=== PATIENT | male | born 1960 | race Caucasian/White ===

== ENCOUNTER → 2017-11-22 14:24 | Outpatient (POV) | payer OTHER, SELFPAY ==
[2017-11-22 15:09] VITALS: BMI 22.4
[2017-11-22 15:13] VITALS: BP 113/76; PULSE 76; RESP 18; O2SAT 99
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
== END ==
PROVIDERS: Family Provider Emergency Medicine; PCP Emergency Medicine; Visit Provider Anesthesiology
DX: M54.32 Sciatica, left side (principal)
CPT/HCPCS: 99212; 99202

== ENCOUNTER 2021-04-04 17:35 | Emergency (ER) | payer MEDICARE, OTHER, SELFPAY ==
[2021-04-04 17:36] VITALS: BP 129/91; PULSE 76; RESP 16; TEMP 37.1; O2SAT 98; BMI 22.4
--- NOTE | 2021-04-04 19:08 | HMH.EDGENADL ---
ED Disposition Clinical Impression: Abscess Disposition: Home, Self-Care Condition on Discharge: Good Instructions: Animal Bites Referrals: Pasquale Avalos MD [Primary Care Provider] - 3 days Time of Disposition: 19:11 - Critical Care Critical Care Time: No Attestation: On 04/04/21, the high probability of a clinically significant, sudden or life threatening deterioration of the following system(s) required my full and direct attention, intervention and personal management. The time I documented below is in addition to time spent performing reported procedures but includes the following listed in this critical care notation. Medical Decision Making - Medical Records Medical records reviewed: Yes: I reviewed the patient's medical records. - Ricardo Inquiry Pt receiving controlled substance: No Vital Signs: 04/04/21 17:36 Temperature 98.7 F Temperature Source Oral Pulse Rate [Left] 76 Respiratory Rate 16 Blood Pressure [Right Arm] 129/91 H Blood Pressure Mean [Right Arm] 103 Blood Pressure Source [Right Arm] Automatic Cuff 02 Sat by Pulse Oximetry 98 Oxygen Delivery Method Room Air Medical Decision Narrative: Patient's clinical exam consistent with cutaneous abscess. Lesion is incredibly firm on palpation. No fluctuance is appreciated. Patient has an allergy to sulfa will therefore treat with clindamycin. First dose in the emergency department. Counseled on warm compresses 3-4 times per day. Instructed to take antibiotics as directed. Follow-up with PCP office on Wednesday for further evaluation. Return to emergency department if condition worsens. General Adult HPI - General Chief complaint: Animal Bite Stated complaint: recaction to insect sting Time Seen by Provider: 04/04/21 18:30 Mode of Arrival: Ambulatory Limitations: No Limitations Description of Symptoms (Recalled from ER Triage Doc. by RN): patient was bit by a bug on left posterior forearm approx 3 days ago. bite area is now red, inflamed, tender, and abcessed. patient complains of pain at the site 03/15. - History of Present Illness HPI narrative: 61yo M presents emergency department secondary to wound to his left forearm. Patient reports he had a small lesion appeared about 3 days ago. He tried to mari it with a needle last night and now the area of redness is worse. Complains of pain. States it is hard to sleep secondary to it. Denies fever, nausea/vomit/diarrhea. - Related Data Home Medications Medication Instructions Recorded Confirmed amitriptyline 25 mg tablet 25 mg PO QHS 09/13/17 trazodone 50 mg tablet 50 mg PO QHS PRN 09/13/17 Allergies Allergy/AdvReac Type Severity Reaction Status Date / Time codeine Allergy Mild ITCHING, Verified 02/11/18 08:07 BREAKOUT cyclobenzaprine Allergy Mild Rash Verified 02/11/18 08:07 [From Flexeril] Sulfa (Sulfonamide Allergy Mild Verified 02/11/18 08:07 Antibiotics) [SULFA (SULFONAMIDE ANTIBIOTICS)] tramadol Allergy Mild Rash Verified 02/11/18 08:07 [facility] History - Hepatitis A Screen Drug use history?: No High risk sexual behaviors?: No History of sexually transmitted infection?: No Currently employed?: No Childcare worker?: No Do you have indoor plumbing?: Yes Do you have electricity?: Yes Attestation statement:: This patient has been screened for Hepatitis A risk factors. I have reviewed the patient's past medical history: Yes Medical History: Reports:: Anxiety Other Medical History: Reports: Other Other Surgeries: Yes: Hernia Repair Amputation: No Fractures: Yes Comment: foot,RT - Social History Smoking Status: Current every day smoker Tobacco Type: cigarettes # Packs/Day (cigarettes): 1 Alcohol Intake: never Substance Use Type: denies use Occupational Status: retired Household Members: spouse - Psychiatric History Pschychiatric History:: Reports:: Anxiety Family Hx:: Diabetes, Hypertension, Kidney Disease ROS Obtained: Mason
[2021-04-04 19:14] VITALS: BP 110/77; PULSE 75; RESP 18; TEMP 36.8; O2SAT 98
[2021-04-04 19:17] VITALS: BP 110/77; PULSE 75; RESP 18; TEMP 36.8; O2SAT 98
== END 2021-04-04 19:19 | disposition home or self-care (01) ==
PROVIDERS: Emergency Provider Family Medicine; PCP Emergency Medicine
DX: L02.414 Cutaneous abscess of left upper limb (principal); S50.862A Insect bite (nonvenomous) of left forearm, initial encounter; W57.XXXA Bitten or stung by nonvenomous insect and other nonvenomous arthropods, initial encounter; F41.9 Anxiety disorder, unspecified; F17.210 Nicotine dependence, cigarettes, uncomplicated
CPT/HCPCS: 99281

== ENCOUNTER → 2023-02-15 15:52 | Outpatient (CLI) | payer MEDICARE, OTHER, SELFPAY ==
--- NOTE | 2023-02-15 16:04 | MR_ITS ---
PROCEDURE INFORMATION: Exam: MR Lumbar Spine Without Contrast Exam date and time: 02/15/2023 4:31 PM Age: 63 years old Clinical indication: Low back pain; Additional info: Lumbar radiculopathy. Left leg pain, numbness and tingling. No recent injury or trauma TECHNIQUE: Imaging protocol: Magnetic resonance imaging of the lumbar spine without contrast. COMPARISON: LAB ASSISTANT/O MRI-L-SPINE W/O 08/11/2017 2:20 PM FINDINGS: Bones/joints: There are multilevel Schmorl's nodes present in the lower thoracic/upper lumbar spine which is unchanged. No significant loss of vertebral body height is seen. No acute osseous injury or suspicious marrow signal. Alignment is anatomic. Spinal cord: Visualized cord, conus medullaris and cauda equina are unremarkable without compression. L1-L2: No significant disc bulge or herniation. No severe spinal canal stenosis. No significant neural foraminal narrowing. L2-L3: L2-L3 diffuse disc desiccation with mild loss of height is unchanged. No stenosis. L3-L4: No significant disc bulge or herniation. No severe spinal canal stenosis. No significant neural foraminal narrowing. L4-L5: L4-L5 minimal bilateral facet arthrosis is seen without stenosis which is unchanged. L5-S1: L5-S1 posterior annular disc tearing with minimal diffuse disc bulging is unchanged. No spinal canal stenosis. Minimal bilateral facet arthrosis with trace facet effusions is unchanged. Patent neural foramina. Soft tissues: Unremarkable. IMPRESSION: Minimal degenerative disc disease is unchanged. No spinal canal stenosis. No acute findings.
== END ==
PROVIDERS: PCP Family Medicine; Visit Provider Family Medicine
DX: M54.50 Low back pain, unspecified (principal); M54.16 Radiculopathy, lumbar region
CPT/HCPCS: 72148; 76376

== ENCOUNTER 2025-08-04 11:08 | Emergency (ER) | payer MEDICARE, SELFPAY ==
--- OUTSIDE RECORDS SUMMARY | 2025-08-02 18:59 | XMS_ITS | Encounter Summary ---
Author Organization [employer] ([place], [place], [place], [place], [place]) Address [address] [place] [address] Care Team Providers Care Personnel Generalist Manager Name Role Phone [facility], [facility] Primary Care Provider Reason for Visit * Reason Comments Back Pain Pt reports that his lowe rback and neck go numb when laying flat preventing him from sleeping Encounter Details Date Type Department Care Team (Late st Contact Info) Description 08/02/2025 6:59 PM EST - 08/02/2025 10:40 PM EST Emergency [facility] Emergency Department [address] [place] [address] Chronic SI joint pain (Primary Dx); Paresthesias Discharge Disposition: Home or Self Care Social History Tobacco Use Types Packs/Day Years Used Date Smoking Tobacco: Every Day Cigarettes Smokeless Tobacco: Never Tobacco Cessation:Ready to Q uit: Not Asked; Counseling Given: Not Answered Alcohol Use Standard Drinks/Week Comments Not Currently 0 (1 standard drink = 0.6 oz pur e alcohol) Sex and Gender Information Value Date Recorded Sex Assigned at Not on file Legal Sex Male 5:22 PM CDT Gender Identity Not on file Sexual Orientation Not on file documented as of this encounter Last Filed Vital Signs Vital Sign Reading Time Taken Comments Blood Pressure 148/87 08/02/2025 8:10 PM EST Pulse 78 08/02/2025 8:10 PM EST Temperature 36.3 C (97.3 F) 08/02/2025 7:04 PM EST Respiratory Rate 17 08/02/2025 7:04 PM EST Oxygen Saturation 96% 08/02/2025 8:10 PM EST Inhaled Oxygen Concentration - - Weight 70.3 kg (155 lb) 08/02/2025 7:04 PM EST Height 170.2 cm (5' 7 ) 08/02/2025 7:04 PM EST Body Mass Index 24.28 08/02/2025 7:04 PM EST documented in this encounter Discharge Instructions * Attachments The following attachments cannot be sent through Care Everywhere. * Chronic Back Pain (Danish) documented in this encounter Medications at Time of Discharge acetaminophen (Tylenol Extra Strength) 500 MG tablet Take 2 tablets (1,000 mg total) by mouth every 6 (six) hours as needed for pain for up to 10 days. 30 tablet 08/02/2025 5 naproxen (NAPROSYN) 500 MG tablet Take 1 tablet (500 mg total) by mouth 2 (two) times daily with breakfast and dinner for 10 days. 20 tablet 08/02/2025 5 documented as of this encounter Plan of Treatment Not on file documented as of this encounter Procedures Procedure Name Priority Date/Time Associated Diagnosis Comments CT ABDOMEN/PELVIS WITH IV CONTRAST STAT 08/02/2025 9:[address] LUMBAR SPINE WITHOUT IV CONTRAST STAT 08/02/2025 9:[address] THORACIC SPINE WITHOUT IV CONTRAST STAT 08/02/2025 9:[address] CERVICAL SPINE WITHOUT IV CONTRAST STAT 08/02/2025 9:26 PM EST CBC W/ AUTO DIFF STAT 08/02/2025 8:12 PM EST URINALYSIS, REFLEX MICROSCOPIC AND CULTURE IF INDICATED STAT 08/02/2025 8:12 PM EST COMPREHENSIVE METABOLIC PANEL STAT 08/02/2025 8:12 PM EST documented in this encounter Results * CT ABDOMEN/PELVIS WITH IV CONTRAST Standard Protocol (08/02/2025 9:33 PM EST) Anatomical Region Laterality Modality Abdomen, Pelvis Computed Tomogra phy (CT) 08/02/2025 9:57 PM EST Impressions 08/02/2025 10:03 PM EST No acute intra-abdominal process. This study was performed using dose reduction techniques to achieve radiation exposure as low as reasonably achievable (ALARA). Images reviewed, interpreted, and dictated by Efrain Young MD Narrative 08/02/2025 10:[address] ABDOMEN AND PELVIS, WITH IV CONTRAST. HISTORY: Flank pain. Mid abdominal pain. Pain radiating to back. COMPARISON: None. PROCEDURE: IV contrast-enhanced exam. FINDINGS: ABDOMEN: The lung bases are clear. Kidneys show no obstructive changes. Tiny cyst is seen in the posterior liver dome. Remaining solid organs are normal. Gallbladder is unremarkable. Abdominal aorta shows no aneurysm or dissection. There is no free air or free fluid. No bowel obstruction is present. PELVIS: The appendix is normal. Bladder is distended. Prostate is unremarkable. There is no significant free fluid or adenopathy. Procedure Note fErain Young MD - 08/02/2025 CT ABDOMEN AND PELVIS, WITH IV CONTRAST. HISTORY: Flank pain. Mid abdominal pain. Pain radiating to back. COMPARISON: None. PROCEDURE: IV contrast-enhanced exam. FINDINGS: ABDOMEN: The lung bases are clear. Kidneys show no obstructive changes. Tiny cyst is seen in the posterior liver dome. Remaining solid organs are normal. Gallbladder is unremarkable. Abdominal aorta shows no aneurysm or dissection. There is no free air or free fluid. No bowel obstruction is present. PELVIS: The appendix is normal. Bladder is distended. Prostate is unremarkable. There is no significant free fluid or adenopathy. IMPRESSION: No acute intra-abdominal process. This study was performed using dose reduction techniques to achieve radiation exposure as low as reasonably achievable (ALARA). Images reviewed, interpreted, and dictated by Efrain Young MD us Rehana Arciniega MD IMG CT ORDERABLES Final R esult * CT cervical spine without contrast (08/02/2025 9:26 PM EST) Anatomical Region Laterality Modality C-spine, Neck Computed Tomogra phy (CT) 08/02/2025 9:54 PM EST Impressions 08/02/2025 9:58 PM EST 1. Moderate degenerative changes. 2. Negative CT evaluation of the cervical spine for acute bony injury. This study was performed using dose reduction techniques to achieve radiation exposure as low as reasonably achievable (ALARA). Images reviewed, interpreted, and dictated by Efrain Young MD Narrative 08/02/2025 9:[address] CERVICAL SPINE HISTORY: Pain with laying flat. TECHNIQUE: Thin section axial CT with sagittal and coronal reconstructions. FINDINGS: No fracture is present. Alignment is normal. 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 There is no bony canal stenosis. Moderate multilevel degenerative disc disease is noted most pronounced C4-5 and C5-6. Neural foraminal narrowing is noted bilaterally at C3-4, C4-5 and C5-6. Procedure Note Efrain Young MD - 08/02/2025 CT CERVICAL SPINE HISTORY: Pain with laying flat. TECHNIQUE: Thin section axial CT with sagittal and coronal reconstructions. FINDINGS: No fracture is present. Alignment is normal. 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 There is no bony canal stenosis. Moderate multilevel degenerative disc disease is noted most pronounced C4-5 and C5-6. Neural foraminal narrowing is noted bilaterally at C3-4, C4-5 and C5-6. IMPRESSION: 1. Moderate degenerative changes. 2. Negative CT evaluation of the cervical spine for acute bony injury. This study was performed using dose reduction techniques to achieve radiation exposure as low as reasonably achievable (ALARA). Images reviewed, interpreted, and dictated by Efrain Young MD us Rehana Arciniega MD IMG CT ORDERABLES Final R esult * CT spine thoracic without IV contrast (08/02/2025 9:26 PM EST) Anatomical Region Laterality Modality C-spine, T-spine, L-spine, Chest Computed Tomography (CT) 08/02/2025 9:55 PM EST Impressions 08/02/2025 9:[address] evaluation of the thoracic spine for acute bony injury. Should symptoms persist consider MR follow-up for better evaluation of disc disease and/or canal stenosis Narrative 08/02/2025 9:[address] THORACIC SPINE HISTORY: Mid back pain. Numbness. TECHNIQUE: Thin section axial CT with sagittal and coronal reconstructions. FINDINGS: No fracture is present. Alignment is normal. No bony canal stenosis is seen. No obvious disc abnormalities are seen. Procedure Note Efrain Young MD - 08/02/2025 CT THORACIC SPINE HISTORY: Mid back pain. Numbness. TECHNIQUE: Thin section axial CT with sagittal and coronal reconstructions. FINDINGS: No fracture is present. Alignment is normal. No bony canal stenosis is seen. No obvious disc abnormalities are seen. IMPRESSION: Negative CT evaluation of the thoracic spine for acute bony injury. Should symptoms persist consider MR follow-up for better evaluation of disc disease and/or canal stenosis us Rehana Arciniega MD IMG CT ORDERABLES Final R esult * CT spine lumbar without IV contrast (08/02/2025 9:26 PM EST) Anatomical Region Laterality Modality L-spine, Pelvis Computed Tomogra phy (CT) 08/02/2025 9:58 PM EST Impressions 08/02/2025 10:05 PM EST 1. Negative CT evaluation of the lumbar spine for acute bony injury. 2. Borderline degenerative canal stenosis L3-4 and L4-5. Should symptoms persist consider MR follow-up 3. Small nonobstructing lower pole right renal stones. This study was performed using dose reduction techniques to achieve radiation exposure as low as reasonably achievable (ALARA). Images reviewed, interpreted, and dictated by Efrain Young MD Narrative 08/02/2025 10:[address] LUMBAR SPINE HISTORY: Low back pain with laying flat. TECHNIQUE: Thin section axial CT with sagittal and coronal reconstructions. FINDINGS: No fracture is present. Alignment is normal. No bony canal stenosis is seen. Mild multilevel degenerative disc changes are seen. There is borderline canal stenosis at L3-4 and L4-5. Small nonobstructing stones are seen lower pole right kidney. These are better seen versus the CT abdomen and pelvis exam due to contrast partially obscuring stones. Procedure Note Efrain Young MD - 08/02/2025 CT LUMBAR SPINE HISTORY: Low back pain with laying flat. TECHNIQUE: Thin section axial CT with sagittal and coronal reconstructions. FINDINGS: No fracture is present. Alignment is normal. No bony canal stenosis is seen. Mild multilevel degenerative disc changes are seen. There is borderline canal stenosis at L3-4 and L4-5. Small nonobstructing stones are seen lower pole right kidney. These are better seen versus the CT abdomen and pelvis exam due to contrast partially obscuring stones. IMPRESSION: 1. Negative CT evaluation of the lumbar spine for acute bony injury. 2. Borderline degenerative canal stenosis L3-4 and L4-5. Should symptoms persist consider MR follow-up 3. Small nonobstructing lower pole right renal stones. This study was performed using dose reduction techniques to achieve radiation exposure as low as reasonably achievable (ALARA). Images reviewed, interpreted, and dictated by Efrain Young MD us Rehana Arciniega MD IMG CT ORDERABLES Final R esult * Urinalysis, Reflex Microscopic and Culture If Indicated (08/02/2025 8:12 PM EST) Color, UA Straw 08/02/2025 8:23 PM EST [facility] Clarity, UA Clear 08/02/2025 8:23 PM EST [facility] Specific [place], UA <=1.005 1.002 - 1.030 08/02/2025 8:23 PM EST [facility] pH, UA 6.0 5.0 - 9.0 08/02/2025 8:23 PM [facility] Leukocytes, UA Negative Negative 08/02/2025 8:23 PM [facility] Nitrite, UA Negative Negative 08/02/2025 8:23 PM EST [facility] Protein, UA Negative Negative 08/02/2025 8:23 PM EST [facility] Glucose, UA Negative Negative 08/02/2025 8:23 PM [facility] Ketones, UA Negative Negative 08/02/2025 8:23 PM [facility] Bilirubin, UA Negative Negative 08/02/2025 8:23 PM [facility] Blood, UA Negative Negative 08/02/2025 8:23 PM [facility] Urobilinogen, UA 0.2 mg/dL Normal 08/02/2025 8:23 PM [facility] Specimen Source Urine, Clean Catch 08/02/2025 8:23 PM EST [facility] Urine URINE SPECIMEN COLLECTION, CLEAN CATCH / Unknown 08/02/2025 8:12 PM EST 08/02/2025 8:16 PM EST us Rehana Arciniega MD URINE ORDERABLES Final Re sult [facility] [address] [place] [address] * (ABNORMAL) Comprehensive metabolic panel (08/02/2025 8:12 PM EST) Sodium 138 136 - 145 meq/L 08/02/2025 8:40 PM [facility] Potassium 3.5 3.5 - 5.1 meq/L 08/02/2025 8:40 PM [facility] Chloride 99 98 - 107 meq/L 08/02/2025 8:40 PM EST [facility] CO2 29 21 - 32 meq/L 08/02/2025 8:40 PM [facility] Calcium 9.0 8.5 - 10.1 mg/dL 08/02/2025 8:40 PM [facility] Glucose 73(L) 74 - 100 mg/dL 08/02/2025 8:40 PM EST [facility] BUN 7 7 - 18 mg/dL 08/02/2025 8:40 PM [facility] Creatinine 0.72 0.70 - 1.20 mg/dL 08/02/2025 8:40 PM [facility] BUN/Creatinine 10 08/02/2025 8:40 PM [facility] Albumin 3.1(L) 3.4 - 5.0 g/dL 08/02/2025 8:40 PM [facility] Alkaline Phosphatase 131(H) 46 - 116 U/L 08/02/2025 8:40 PM [facility] ALT 17 12 - 78 U/L 08/02/2025 8:40 PM EST [facility] AST 13(L) 15 - 37 U/L 08/02/2025 8:40 PM [facility] Total Bilirubin 0.2 0.2 - 1.0 mg/dL 08/02/2025 8:40 PM [facility] Protein, Total 7.6 6.4 - 8.2 gm/dL 08/02/2025 8:40 PM [facility] Anion Gap 14 - 08/02/2025 8:40 PM EST [facility] A/G Ratio 0.7 08/02/2025 8:40 PM [facility] Globulin 4.5 g/dL 08/02/2025 8:40 PM [facility] Osmolality Calc 272.2 mOsm/kg 8:40 PM [facility] eGFR (mL/min/1.73m2) >60 >=60 mL/min/1.7 3m2 08/02/2025 8:40 PM [facility] Comment:ESTIMATED GFR IS NOT ACCURATE CREATININE CLEARANCE IN PREDICTING GLOMERULAR FILTRATION RATE. ESTIMATED GFR IS NOT APPLICABLE FOR DIALYSIS PATIENTS. Blood Venipuncture / Unknown 08/02/2025 8:12 PM EST 08/02/2025 8:16 PM EST us Rehana Arciniega MD LAB BLOOD ORDERABLES Aria gamble Result [facility] [address] [place] [address] * (ABNORMAL) CBC with Auto Diff (08/02/2025 8:12 PM EST) WBC 8.5 4.8 - 10.8 K/ L 08/02/2025 8:23 PM [facility] RBC 5.43(H) 3.80 - 5.20 M/ L 08/02/2025 8:23 PM [facility] Hemoglobin 15.6 12.8 - 17.4 GM/DL 08/02/2025 8:23 PM [facility] Hematocrit 46.1 39.0 - 51.0 % 08/02/2025 8:23 PM [facility] MCV 85 81 - 101 fL 08/02/2025 8:23 PM [facility] MCH 28.7 27.0 - 34.0 pg 08/02/2025 8:23 PM [facility] MCHC 33.8 32.0 - 36.0 GM/DL 08/02/2025 8:23 PM [facility] RDW 14.7(H) 11.5 - 14.5 % 08/02/2025 8:23 PM [facility] Platelets 390 150 - 400 K/CU MM 08/02/2025 8:23 PM [facility] MPV 10.1 9.4 - 12.4 fL 08/02/2025 8:23 PM [facility] Nucleated Red Blood Cell 0.0 0 - 0.2 % 08/02/2025 8:23 PM [facility] % Neutros 55 37 - 80 % 08/02/2025 8:23 PM [facility] % Lymphs 29 10 - 50 % 08/02/2025 8:23 PM [facility] % Monos 12 5 - 13 % 08/02/2025 8:23 PM [facility] % Eos 3.8 0.0 - 7.0 % 08/02/2025 8:23 PM [facility] % Baso 1 0 - 3 % 08/02/2025 8:23 PM [facility] NRBC Absolute <0.01 0 - 0.012 K/ul 08/02/2025 8:23 PM [facility] # Neutros 4.63 2.00 - 6.90 K/ L 08/02/2025 8:23 PM [facility] # Lymphs 2.42 0.60 - 3.40 K/ L 08/02/2025 8:23 PM [facility] # Monos 1.01(H) 0.00 - 0.90 K/ L 08/02/2025 8:23 PM EST [facility] # Eos 0.32 0.00 - 0.70 K/ L 08/02/2025 8:23 PM EST [facility] # Baso 0.09 0.00 - 0.20 K/ L 08/02/2025 8:23 PM EST [facility] % Imm Grans 0.20 % 08/02/2025 8:23 PM EST [facility] # IG 0.02(H) 0.00 - 0.00 K/uL 08/02/2025 8:23 PM EST [facility] Blood Venipuncture / Unknown 08/02/2025 8:12 PM EST 08/02/2025 8:16 PM EST Narrative [facility] - 08/02/2025 8:23 PM EST When CBC w/ Auto Diff is ordered the lab will add a Manual Differential as a quality check at no additional charge if: Lymphocytes greater than seventy five percent with normal or increased WBC Monocytes greater than Fifteen percent Basophil greater than four percent Bands >10% or several immature myeloids are seen on scan Blast? Flag noted Atypical Lymph flag noted us Rehana Arciniega MD LAB BLOOD ORDERABLES Aria gamble Result [facility] [address] [place] [address], [facility] [phone] documented in this encounter Visit Diagnoses Diagnosis Chronic SI joint pain- Primary Disorders of sacrum Paresthesias Disturbance of skin sensation documented in this encounter Administered Medications Inactive Administered Medications - up to 3 most recent administrations Medication Order MAR Action Action Date Dose Rate Site acetaminophen (TYLENOL) tablet 650 mg 650 mg Once, oral, On Yuliana 08/02/25 at 1999, For 1 dose, Recommended maximum dose of acetaminophen is 4000 mg from all sources in 24 hours Given 08/02/2025 8:09 PM EST 650 mg dexAMETHasone PF injection 6 mg 6 mg Once, intravenous, On Yuliana 08/02/25 at 1999, For 1 dose Given 08/02/2025 8:11 PM EST 6 mg iopamidoL (ISOVUE-370) 370 mg iodine /mL (76 %) injection 75 mL 75 mL IMG once as needed, intravenous, contrast, Starting on Yuliana 08/02/25 at 2046, For 1 dose, Intra-op Given 08/02/2025 9:11 PM EST 75 mLs Right Arm ketorolac (TORADOL) injection 15 mg 15 mg Once, intravenous, On Yuliana 08/02/25 at 2000, For 1 dose Given 08/02/2025 8:10 PM EST 15 mg documented in this encounter Active and Recently Administered Medications Times are shown in EST. Scheduled Medication Order 07/31/2025 08/01/2025 08/02/2025 acetaminophen (TYLENOL) tablet 650 mg (COMPLETED) 650 mg Once, oral, On Yuliana 08/02/25 at 2000, For 1 dose, Recommended maximum dose of acetaminophen is 4000 mg from all sources in 24 hours 2008 (Given - Provid er: Ivon Sierra) dexAMETHasone PF injection 6 mg (COMPLETED) 6 mg Once, intravenous, On Yuliana 08/02/25 at 2000, For 1 dose 2010 (Given - Provid er: Ivon Sierra) ketorolac (TORADOL) injection 15 mg (COMPLETED) 15 mg Once, intravenous, On Yuliana 08/02/25 at 2000, For 1 dose 2009 (Given - Provid er: Ivon Sierra) PRN Medication Order 07/31/2025 08/01/2025 08/02/2025 iopamidoL (ISOVUE-370) 370 mg iodine /mL (76 %) injection 75 mL (COMPLETED) 75 mL IMG once as needed, intravenous, contrast, Starting on Yuliana 08/02/25 at 2046, For 1 dose, Intra-op 2110 (Given - Provid er: Roseanna Trent - Comment: EX. RIGHT AC 18G, BLOOD RETURN NOTED) documented in this encounter Care Teams Personnel Generalist Manager Relationship Specialty Start Date End Date [facility], [facility] [place] [address] PCP - General 08/02/25 documented as of this encounter
[2025-08-04 11:12] VITALS: BP 116/91; PULSE 65; O2SAT 94
[2025-08-04 11:15] VITALS: BP 116/91; PULSE 63; RESP 20; TEMP 36.9; O2SAT 94; BMI 22.4
--- NOTE | 2025-08-04 11:21 | [facility].EDGENADL ---
Discharge Plan Disposition Patient Disposition: Home, Self-Care Prescriptions Prescriptions: New lidocaine 4 % adhesive patch,medicated 1 patch topical DAILY Qty: 5 0RF Rx Instructions: may leave on for up to 12 hrs ibuprofen 600 mg tablet 600 mg PO Q8H PRN (Reason: pain) 7 Days Qty: 21 0RF cyclobenzaprine 5 mg tablet 5 mg PO TID PRN (Reason: muscle spasm) 5 Days Qty: 15 0RF prednisone 50 mg tablet 50 mg PO DAILY 5 Days Qty: 5 0RF Rx Instructions: Please begin 1 day after ED visit No Action trazodone 50 mg tablet 50 mg PO QHS PRN amitriptyline 25 mg tablet 25 mg PO QHS clindamycin HCl 300 MG capsule 300 mg PO QID Qty: 28 0RF Referrals Follow up/Referrals: Melanie Sosa DO [Primary Care Provider, Medical] - See instructions David Cabral DO [Staff Physician, Family Practice] - See instructions Activity Restrictions/Add. Instructions Additional Instructions/Restrictions: With recent negative CAT scans and your clinical symptoms this is consistent with left-sided sciatica. If your symptoms persist I would recommend you follow-up with your primary care doctor to get an outpatient MRI please return to the emergency department with any paralysis of your legs or bowel or bladder incontinence numbness between your legs or other concerns. Clinical Impressions Clinical Impression: Left sided sciatica Print Language Print Language: Yoruba Discharge ED Provider: Silvia Jones General Adult HPI General Stated complaint: back and sciatic pain- reoccurring Time Seen by Provider: 08/04/25 11:14 History of Present Illness HPI narrative: Patient is a 65-year-old male with a history of sciatica presenting today with what he believes is recurrent. States that he had an injury many years ago that led initially to the nerve damage in his legs he states. Over the last 3 to 4 days he has had pain along the lateral aspect of his paraspinal musculature in the lumbar region radiating into his left hip and has some numbness associated with that. States that it kept him from sleeping. Went to a doctor a few days ago was given a Tylenol and naproxen prescriptions that he currently has with him. States that the naproxen makes him upset to his stomach so he is only taking Tylenol without any improvement. Denies any incontinence paralysis midline pain also states that he had a CT scan done at another hospital 2 days ago which was unremarkable. Related Data Home Medications ?Medication ?Instructions ?Recorded ?Confirmed amitriptyline 25 mg tablet 25 mg PO QHS 09/13/17 trazodone 50 mg tablet 50 mg PO QHS PRN 09/13/17 Previous Rx's ?Medication ?Instructions ?Recorded clindamycin HCl 300 mg capsule 300 mg PO QID #28 caps 04/04/21 cyclobenzaprine 5 mg tablet 5 mg PO TID PRN muscle spasm 5 08/04/25 days #15 tabs ibuprofen 600 mg tablet 600 mg PO Q8H PRN pain 7 days #21 08/04/25 tabs lidocaine 4 % topical patch 1 patch topical DAILY #5 ea 08/04/25 prednisone 50 mg tablet 50 mg PO DAILY 5 days #5 tabs 08/04/25 Allergies Allergy/AdvReac Type Severity Reaction Status Date / Time codeine Allergy Mild ITCHING, Verified 02/11/18 08:07 BREAKOUT cyclobenzaprine (From Allergy Mild Rash Verified 02/11/18 08:07 Flexeril) Sulfa (Sulfonamide Allergy Mild Verified 02/11/18 08:07 Antibiotics) (SULFA (SULFONAMIDE ANTIBIOTICS)) tramadol Allergy Mild Rash Verified 02/11/18 08:07 [facility] Disclaimer: The information contained in this section may have been updated after the patient was seen, as this information can be updated by other users. Social History Smoking Status: Current every day smoker tobacco type: cigarettes packs per day: 1 alcohol intake: never substance use type: denies use current occupational status: retired Travel in the last 8 weeks?: None household members: spouse Other Medical History Have you received the Flu Vaccine for this season: No Have you received the Pneumonia Vaccine: No ROS Obtained: Yes All systems reviewed & no additional complaints except as documented Physical Exam General General appearance: alert and in no apparent distress Respiratory Respiratory exam: Present normal lung sounds bilaterally Cardiovascular Cardiovascular exam: Present regular rate Back Exam Back exam: Present other (There is paraspinal muscular tenderness in the sacroiliac region no midline tenderness in the spine specifically in the lumbar spine patient's strength in lower extremities normal no saddle anesthesia) Neurological Exam Neurological exam: Present alert and oriented X3 Medical Decision Making Medical Records Screening: Per USPSTF and CDC recommendations, given the prevalence of disease in our region, it is our hospital?s policy to screen for HIV and viral Hepatitis for all patients aged 18 and over and those with ongoing risk factors. Ricardo Inquiry Pt receiving controlled substance: No Vital Signs: 08/04/25 11:12 Pulse Rate 65 Blood Pressure 116/91 H 02 Sat by Pulse Oximetry 94 L Oxygen Delivery Method Room Air Orders (Tests/Meds): ED MEDICATIONS Generic Name Dose Route Start Last Admin Trade Name Freq PRN Reason Stop Dose Admin Cyclobenzaprine HCl 5 mg 08/04/25 11:17 Cyclobenzaprine 10mg Tablet PO 08/04/25 11:18 ONCE ONE Ketorolac Tromethamine 30 mg 08/04/25 11:17 Ketorolac 30mg/Ml Vial IM 08/04/25 11:18 ONCE ONE Lidocaine 1 each 08/04/25 11:17 Lidocaine 5% Transdermal Patch TD 08/04/25 11:18 ONCE ONE Prednisone 40 mg 08/04/25 11:17 Prednisone 20mg Tab PO 08/04/25 11:18 ONCE ONE Medical Decision Narrative: 65-year-old with above history and physical. Has a normal neurologic exam specifically no signs or symptoms concerning for cauda equina or central [employer] compression. No midline pain to suggest bony pathology at the moment. No indication for any emergency imaging. Will treat this symptomatically as sciatica medications given in the emergency department prescription sent to his pharmacy he has been given a referral to primary care to physician which was his request to have somebody local. May need an outpatient MRI if his symptoms persist. Critical Care Critical Care Time Critical Care Time: No
[2025-08-04 11:29] VITALS: BP 122/84; PULSE 94; O2SAT 96
[2025-08-04] MEDS: CYCLOBENZAPRINE 10MG TABLET 5 MG PO (11:30)
[2025-08-04] MEDS: KETOROLAC 30MG/ML VIAL 30 MG IM (11:31)
[2025-08-04] MEDS: LIDOCAINE 5% TRANSDERMAL PATCH 1 EACH TD (11:33)
--- OUTSIDE RECORDS SUMMARY | 2025-08-04 11:34 | XMS_ITS | Data Portability ---
Author Organization [facility] Address [address] [place] [address] Assessment No assessment recorded. Plan of Treatment Reminders Order Date Submit Date Provider Last Modified By Organization Details Last Modified Time Details Appointments None recorded. Lab drug screen, 14 drugs (detectimed ), urine 2024 025 Z[facility], [address], [address], [place], [address], 5 13:19:50 lipid panel, serum 2024 025 [facility], [address], [address], [place], [address], 5 05:37:12 drug screen, [facility]24 [facility], [address] [place], [address], 5 11:34:10 cobalamin and folate panel, serum 2024 025 Z[facility]RA [facility], [address], [place], [place], [address], 5 05:37:13 CBC w/ auto diff 2024 025 ZOHRA [facility], [address], [address], [place], [address], 5 05:37:11 CMP, serum or plasma 2024 025 ZOHRA [facility], [address], [address], [place], [address], 5 05:37:12 magnesium, serum or plasma 2024 025 Z[facility], [address], [address], [place], [address], 5 05:37:13 drug screen, urine 2023 024 SILOAM [facility], [address] [place], [address], 4 12:15:36 drug screen, urine 2023 024 SILOAM [facility], [address] [place], [address], 4 15:21:47 unlisted lab - compliance drug nona, no THC 2023 024 SILOAM [facility], [address], [address], [place], [address], 4 20:09:00 Referral None recorded. Procedures None recorded. Surgeries None recorded. Imaging None recorded. Medication Orders gabapentin 800 mg tablet 2024 025 [facility] [id number], [address], [place], [address], 5 09:35:38 Anoro Ellipta 62.5 mcg-25 mcg/actuati on powder for inhalation 2024 025 [facility] [id number], [address], [place], [address], 5 10:10:03 albuterol sulfate HFA 90 mcg/actuati on aerosol inhaler 2024 025 [facility] [id number], [address], [place], [address], 5 10:10:07 gabapentin 800 mg tablet 2024 025 [facility] [id number], [address], [place], [address], 5 10:10:09 gabapentin 800 mg tablet 2023 024 [facility] [id number], [address], [place], [address], 4 09:41:05 gabapentin 800 mg tablet [address] [id number], [address], [place], [address], 4 10:41:40 gabapentin 800 mg tablet [address] [id number], [address], [place], [address], 4 10:38:44 Patient TargetsNo targets recorded. Patient InstructionsNo instructions recorded. Reason for Referral None Reported. Results Created Date Observation Date Name Description Value Unit Range Abnormal Flag Note LastModifiedBy Organization Detail LastModifiedTime 02/18/20 24 02/29/2024 COMPL IANCE DRUG NONA , NO THC summary report (summary) FINAL ===== ===== ===== ===== ===== ===== ===== ===== ===== ===== ===== ===== ===== === TOXAS SURE COMP DRUG NONA SIS,N O THC,U R ===== ===== ===== ===== ===== ===== ===== ===== ===== ===== ===== ===== ===== === Test Resul t Flag Units Drug Prese nt [place] codon e 5921 ng/mg creat [place] morph one 2229 ng/mg creat Dihyd rocod eine 441 ng/mg creat Norhy droco done 3741 ng/mg creat Sourc es of hydro codon e inclu de sched uled presc ripti on medic ation s. [place] morph one, dihyd rocod eine and norhy droco done are expec donald metab olite s of hydro codon e. [place] morph one and dihyd rocod eine are also avail able as sched uled presc ripti on medic ation s. Gabap entin PRESE NT Aceta minop hen PRESE NT ===== ===== ===== ===== ===== ===== ===== ===== ===== ===== ===== ===== ===== === Test Resul t Flag Units Ref Range Creat inine 58 mg/dL >=20 ===== ===== ===== ===== ===== ===== ===== ===== ===== ===== ===== ===== ===== === Decla red Medic ation s: Medic ation list was not provi ded. ===== ===== ===== ===== ===== ===== ===== ===== ===== ===== ===== ===== ===== === For clini jumana consu ltati on, pleas e call . ===== ===== ===== ===== ===== ===== ===== ===== ===== ===== ===== ===== ===== === Not Available [facility] ([facility]) [address] [facility], [place], [address], 02/29/2024 20:09:00 02/18/20 24 02/29/2024 COMPL IANCE DRUG NONA , NO THC pdf . Not Available [facility] ([facility]) [address] [facility], [place], [address], 02/29/2024 20:09:00 04/14/20 24 04/14/2024 drug scree n, urine THC negati ve Not Available [facility] [place], [address], 04/14/2024 10:35:52 04/14/20 24 04/14/2024 drug scree n, urine TCA negati ve Not Available [facility] [place], [address], 04/14/2024 10:35:52 04/14/20 24 04/14/2024 drug scree n, urine BAR negati ve Not Available [facility] [place], [address], 04/14/2024 10:35:52 04/14/20 24 04/14/2024 drug scree n, urine BZO negati ve Not Available [facility] [place], [address], 04/14/2024 10:35:52 04/14/20 24 04/14/2024 drug scree n, urine MTD negati ve Not Available [facility] [place], [address], 04/14/2024 10:35:52 04/14/20 24 04/14/2024 drug scree n, urine AMP negati ve Not Available [facility] [place], [address], 04/14/2024 10:35:52 04/14/20 24 04/14/2024 drug scree n, urine MOP negati ve Not Available [facility] [place], [address], 04/14/2024 10:35:52 04/14/20 24 04/14/2024 drug scree n, urine OXY negati ve Not Available [facility] [place], [address], 04/14/2024 10:35:52 04/14/20 24 04/14/2024 drug scree n, urine MDMA negati ve Not Available [facility] [place], [address], 04/14/2024 10:35:52 04/14/20 24 04/14/2024 drug scree n, urine SHIRIN negati ve Not Available [facility] [place], [address], 04/14/2024 10:35:52 04/14/20 24 04/14/2024 drug scree n, urine PCP negati ve Not Available [facility] [place], [address], 04/14/2024 10:35:52 04/14/20 24 04/14/2024 drug scree n, urine MET negati ve Not Available [facility] [place], [address], 04/14/2024 10:35:52 06/12/20 24 06/12/2024 drug scree n, urine MOP positi ve Not Available [facility] [place], [address], 06/12/2024 09:40:38 06/12/20 24 06/12/2024 drug scree n, urine OXY positi ve Not Available [facility] [place] [address], [address], 06/12/2024 09:40:38 06/12/20 24 06/12/2024 drug scree n, urine AMP negati ve Not Available [facility] [place], [address], 06/12/2024 09:40:38 06/12/20 24 06/12/2024 drug scree n, urine MTD negati ve Not Available [facility] [place], [address], 06/12/2024 09:40:38 06/12/20 24 06/12/2024 drug scree n, urine BZO negati ve Not Available [facility] [place], [address], 06/12/2024 09:40:38 06/12/20 24 06/12/2024 drug scree n, urine BAR negati ve Not Available [facility] [place], [address], 06/12/2024 09:40:38 06/12/20 24 06/12/2024 drug scree n, urine TCA negati ve Not Available [facility] [place], [address], 06/12/2024 09:40:38 06/12/20 24 06/12/2024 drug scree n, urine THC negati ve Not Available [facility] [place], [address], 06/12/2024 09:40:38 06/12/20 24 06/12/2024 drug scree n, urine MDMA negati ve Not Available [facility] [place], [address], 06/12/2024 09:40:38 06/12/20 24 06/12/2024 drug scree n, urine SHIRIN negati ve Not Available [facility] [place], [address], 06/12/2024 09:40:38 06/12/20 24 06/12/2024 drug scree n, urine PCP negati ve Not Available [facility] [place], [address], 06/12/2024 09:40:38 06/12/20 24 06/12/2024 drug scree n, urine MET negati ve Not Available [facility] [address], [place], [address], 06/12/2024 09:40:38 10/10/19 25 10/11/2024 CBC WITH DIFFE RENTI AL/PL ATELE T WBC 8.2 x10e3 /uL 3.4-10 .8 normal Not Available [facility] ([facility]) [address] [place], [address], 10/11/2024 05:37:11 10/10/19 25 10/11/2024 CBC WITH DIFFE RENTI AL/PL ATELE T RBC 4.79 x10e6 /uL 4.14-5 .80 normal Not Available [facility] ([facility]) [address] [place], [address], 10/11/2024 05:37:11 10/10/19 25 10/11/2024 CBC WITH DIFFE RENTI AL/PL ATELE T hemoglobin 13.7 g/dL 13.0-1 7.7 normal Not Available [facility] ([facility]) [address] [place], [address], 10/11/2024 05:37:11 10/10/19 25 10/11/2024 CBC WITH DIFFE RENTI AL/PL ATELE T hematocrit 43.1 % 37.5-5 1.0 normal Not Available [facility] ([facility]) [address] [place], [address], 10/11/2024 05:37:11 10/10/19 25 10/11/2024 CBC WITH DIFFE RENTI AL/PL ATELE T MCV 90 fL 79-97 normal Not Available [facility] ([facility]) [address] [place], [address], 10/11/2024 05:37:11 10/10/19 25 10/11/2024 CBC WITH DIFFE RENTI AL/PL ATELE T MCH 28.6 pg 26.6-3 3.0 normal Not Available [facility] ([facility]) [address] [place], [address], 10/11/2024 05:37:11 10/10/19 25 10/11/2024 CBC WITH DIFFE RENTI AL/PL ATELE T MCHC 31.8 g/dL 31.5-3 5.7 normal Not Available [facility] ([facility]) [address] [place], [address], 10/11/2024 05:37:11 10/10/19 25 10/11/2024 CBC WITH DIFFE RENTI AL/PL ATELE T RDW 13.6 % 11.6-1 5.4 Not Available [facility] ([facility]) [address] [place], [address], 10/11/2024 05:37:11 10/10/19 25 10/11/2024 CBC WITH DIFFE RENTI AL/PL ATELE T platelets 344 x10e3 /uL 150-45 0 normal Not Available [facility] ([facility]) [address] [facility], [place], [address], 10/11/2024 05:37:11 10/10/19 25 10/11/2024 CBC WITH DIFFE RENTI AL/PL ATELE T neutrophils 63 % not estab. normal Not Available [facility] ([facility]) [address] [place], [address], 10/11/2024 05:37:11 10/10/19 25 10/11/2024 CBC WITH DIFFE RENTI AL/PL ATELE T lymphs 22 % not estab. normal Not Available [facility] ([facility]) [address] [place], [address], 10/11/2024 05:37:11 10/10/19 25 10/11/2024 CBC WITH DIFFE RENTI AL/PL ATELE T monocytes 10 % not estab. normal Not Available [facility] ([facility]) [address] [place], [address], 10/11/2024 05:37:11 10/10/19 25 10/11/2024 CBC WITH DIFFE RENTI AL/PL ATELE T eos 4 % not estab. normal Not Available [facility] ([facility]) [address] [place], [address], 10/11/2024 05:37:11 10/10/19 25 10/11/2024 CBC WITH DIFFE RENTI AL/PL ATELE T basos 1 % not estab. normal Not Available [facility] ([facility]) [address] [facility], [place], [address], 10/11/2024 05:37:11 10/10/19 25 10/11/2024 CBC WITH DIFFE RENTI AL/PL ATELE T immature cells RETIREMENT ADMINISTRATOR Not Available [facility] ([facility]) [address] [place], [address], 10/11/2024 05:37:11 10/10/19 25 10/11/2024 CBC WITH DIFFE RENTI AL/PL ATELE T neutrophils (absolute) 5.1 x10e3 /uL 1.4-7. 0 normal Not Available [facility] ([facility]) [address] [place], [address], 10/11/2024 05:37:11 10/10/19 25 10/11/2024 CBC WITH DIFFE RENTI AL/PL ATELE T lymphs (absolute) 1.8 x10e3 /uL 0.7-3. 1 normal Not Available [facility] ([facility]) [address] [place], [address], 10/11/2024 05:37:11 10/10/19 25 10/11/2024 CBC WITH DIFFE RENTI AL/PL ATELE T monocytes(ab solute) 0.8 x10e3 /uL 0.1-0. 9 normal Not Available [facility] ([facility]) [address] [place], [address], 10/11/2024 05:37:11 10/10/19 25 10/11/2024 CBC WITH DIFFE RENTI AL/PL ATELE T eos (absolute) 0.3 x10e3 /uL 0.0-0. 4 normal Not Available [facility] ([facility]) [address] [facility], [place], [address], 10/11/2024 05:37:11 10/10/19 25 10/11/2024 CBC WITH DIFFE RENTI AL/PL ATELE T baso (absolute) 0.1 x10e3 /uL 0.0-0. 2 normal Not Available [facility] ([facility]) [address] [place], [address], 10/11/2024 05:37:11 10/10/19 25 10/11/2024 CBC WITH DIFFE RENTI AL/PL ATELE T immature granulocytes 0 % not estab. Not Available [facility] ([facility]) [address] [place], [address], 10/11/2024 05:37:11 10/10/19 25 10/11/2024 CBC WITH DIFFE RENTI AL/PL ATELE T immature grans (abs) 0.0 x10e3 /uL 0.0-0. 1 Not Available [facility] ([facility]) [address] [place], [address], 10/11/2024 05:37:11 10/10/19 25 10/11/2024 CBC WITH DIFFE RENTI AL/PL ATELE T NRBC RETIREMENT ADMINISTRATOR Not Available [facility] ([facility]) [address] [place], [address], 10/11/2024 05:37:11 10/10/19 25 10/11/2024 CBC WITH DIFFE TREE AL/PL FORTUNATOLE T hematology comments: RETIREMENT ADMINISTRATOR Not Available [facility] ([facility]) [address] [place], [address], 10/11/2024 05:37:11 10/10/19 25 10/11/2024 COMP. METAB OLIC PANEL (14) glucose 69 mg/dL 70-99 below low normal Not Available [facility] ([facility]) [address] [place], [address], 10/11/2024 05:37:12 10/10/19 25 10/11/2024 COMP. METAB OLIC PANEL (14) BUN 7 mg/dL 8-27 below low normal Not Available [facility] ([facility]) [address] [facility], [place], [address], 10/11/2024 05:37:12 10/10/19 25 10/11/2024 COMP. METAB OLIC PANEL (14) creatinine 0.68 mg/dL 0.76-1 .27 below low normal Not Available [facility] ([facility]) [address] [place], [address], 10/11/2024 05:37:12 10/10/19 25 10/11/2024 COMP. METAB OLIC PANEL (14) eGFR 104 mL/mi n/1.7 3 >59 normal Not Available [facility] ([facility]) [address] [place], [address], 10/11/2024 05:37:12 10/10/19 25 10/11/2024 COMP. METAB OLIC PANEL (14) BUN/creatini ne ratio 10 10-24 normal Not Available [facility] ([facility]) [address] [place], [address], 10/11/2024 05:37:12 10/10/19 25 10/11/2024 COMP. METAB OLIC PANEL (14) sodium 142 mmol/ L 134-14 4 normal Not Available [facility] ([facility]) [address] [place], [address], 10/11/2024 05:37:12 10/10/19 25 10/11/2024 COMP. METAB OLIC PANEL (14) potassium 4.3 mmol/ L 3.5-5. 2 normal Not Available [facility] ([facility]) [address] [place], [address], 10/11/2024 05:37:12 10/10/19 25 10/11/2024 COMP. METAB OLIC PANEL (14) chloride 105 mmol/ L 96-106 normal Not Available [facility] ([facility]) [address] [place], [address], 10/11/2024 05:37:12 10/10/19 25 10/11/2024 COMP. METAB OLIC PANEL (14) carbon dioxide, total 24 mmol/ L 20-29 normal Not Available [facility] ([facility]) [address] [place], [address], 10/11/2024 05:37:12 10/10/19 25 10/11/2024 COMP. METAB OLIC PANEL (14) calcium 9.6 mg/dL 8.6-10 .2 normal Not Available [facility] ([facility]) [address] [facility] [place], [address], 10/11/2024 05:37:12 10/10/19 25 10/11/2024 COMP. METAB OLIC PANEL (14) protein, total 6.8 g/dL 6.0-8. 5 normal Not Available [facility] ([facility]) [address] [place], [address], 10/11/2024 05:37:12 10/10/19 25 10/11/2024 COMP. METAB OLIC PANEL (14) albumin 4.0 g/dL 3.9-4. 9 normal Not Available [facility] ([facility]) [address] [facility] [place], [address], 10/11/2024 05:37:12 10/10/19 25 10/11/2024 COMP. METAB OLIC PANEL (14) globulin, total 2.8 g/dL 1.5-4. 5 Not Available [facility] ([facility]) [address] [facility] [place], [address], 10/11/2024 05:37:12 10/10/19 25 10/11/2024 COMP. METAB OLIC PANEL (14) bilirubin, total <0.2 mg/dL 0.0-1. 2 Not Available [facility] ([facility]) [address] [facility] [place], [address], 10/11/2024 05:37:12 10/10/19 25 10/11/2024 COMP. METAB OLIC PANEL (14) alkaline phosphatase 127 IU/L 44-121 above high normal Not Available [facility] ([facility]) [address] [facility] [place], [address], 10/11/2024 05:37:12 10/10/19 25 10/11/2024 COMP. METAB OLIC PANEL (14) AST (SGOT) 21 IU/L 0-40 normal Not Available [facility] ([facility]) [address] [facility] [place], [address], 10/11/2024 05:37:12 10/10/19 25 10/11/2024 COMP. METAB OLIC PANEL (14) ALT (SGPT) 15 IU/L 0-44 normal Not Available [facility] ([facility]) [address] [facility] [place], [address], 10/11/2024 05:37:12 10/10/19 25 10/11/2024 LIPID PANEL cholesterol, total 155 mg/dL 100-19 9 normal Not Available [facility] ([facility]) [address] [facility] [place], [address], 10/11/2024 05:37:12 10/10/19 25 10/11/2024 LIPID PANEL triglyceride s 101 mg/dL 0-149 normal Not Available [facility] ([facility]) [address] [facility] [place], [address], 10/11/2024 05:37:12 10/10/19 25 10/11/2024 LIPID PANEL HDL cholesterol 36 mg/dL >39 below low normal Not Available [facility] ([facility]) [address] [facility] [place], [address], 10/11/2024 05:37:12 10/10/19 25 10/11/2024 LIPID PANEL VLDL cholesterol jumana 19 mg/dL 5-40 Not Available [facility] ([facility]) [address] [facility] [place], [address], 10/11/2024 05:37:12 10/10/19 25 10/11/2024 LIPID PANEL LDL chol calc ([facility]) 100 mg/dL 0-99 above high normal Not Available [facility] ([facility]) [address] [facility] [place], [address], 10/11/2024 05:37:12 10/10/19 25 10/11/2024 LIPID PANEL LDL calc comment: RETIREMENT ADMINISTRATOR Not Available [facility] ([facility]) [address] [facility] [place], [address], 10/11/2024 05:37:12 10/10/19 25 10/11/2024 VITAM IN B12 AND FOLAT E vitamin B12 585 pg/mL 232-12 45 normal Not Available [facility] ([facility]) [address] [facility] [place], [address], 10/11/2024 05:37:13 10/10/19 25 10/11/2024 VITAM IN B12 AND FOLAT E folate (folic acid), serum 3.2 NG/mL >3.0 normal A serum folat e dheeraj ntrat ion of less than 3.1 ng/mL is consi dered to repre sent clini jumana defic iency . Not Available [facility] ([facility]) [address] [facility], [place], [address], 10/11/2024 05:37:13 10/10/19 25 10/11/2024 MAGNE SIUM magnesium 2.1 mg/dL 1.6-2. 3 normal Not Available [facility] ([facility]) [address] [facility], [place], [address], 10/11/2024 05:37:13 10/10/19 25 10/10/2024 drug scree n, urine THC negati ve Not Available [facility] [place], [address], 10/10/2024 10:42:13 10/10/19 25 10/10/2024 drug scree n, urine TCA negati ve Not Available [facility] [address] [place], [address], 10/10/2024 10:42:13 10/10/19 25 10/10/2024 drug scree n, urine BAR negati ve Not Available [facility] [place] [place], [address], 10/10/2024 10:42:13 10/10/19 25 10/10/2024 drug scree n, urine BZO negati ve Not Available [facility] [place] [place], [address], 10/10/2024 10:42:13 10/10/19 25 10/10/2024 drug scree n, urine MTD negati ve Not Available [facility] [place], [address], 10/10/2024 10:42:13 10/10/19 25 10/10/2024 drug scree n, urine AMP negati ve Not Available [facility] [place] [place], [address], 10/10/2024 10:42:13 10/10/19 25 10/10/2024 drug scree n, urine MOP negati ve Not Available [facility] [address] [place], [address], 10/10/2024 10:42:13 10/10/19 25 10/10/2024 drug scree n, urine OXY positi ve Not Available [facility] [place], [address], 10/10/2024 10:42:13 10/10/19 25 10/10/2024 drug scree n, urine MDMA negati ve Not Available [facility] [place] [place], [address], 10/10/2024 10:42:13 10/10/19 25 10/10/2024 drug scree n, urine SHIRIN negati ve Not Available [facility] [place] [place], [address], 10/10/2024 10:42:13 10/10/19 25 10/10/2024 drug scree n, urine PCP negati ve Not Available [facility] [address] [place], [address], 10/10/2024 10:42:13 10/10/19 25 10/10/2024 drug scree n, urine MET negati ve Not Available [facility] [place] [place], [address], 10/10/2024 10:42:13 01/10/20 25 01/17/2025 COMPL IANCE DRUG NONA SIS, UR summary report (summary) FINAL ===== ===== ===== ===== ===== ===== ===== ===== ===== ===== ===== ===== ===== === TOXAS SURE COMP DRUG NONA SIS,U R ===== ===== ===== ===== ===== ===== ===== ===== ===== ===== ===== ===== ===== === Speci men Alert Note: Urina ry creat inine is low; abili ty to detec t some drugs may be compr omise d. Inter pret resul ts with cauti on. ===== ===== ===== ===== ===== ===== ===== ===== ===== ===== ===== ===== ===== === Test Resul t Flag Units Drug Prese nt [place] codon e 3533 ng/mg creat [place] morph one 573 ng/mg creat Dihyd rocod eine 427 ng/mg creat Norhy droco done 1793 ng/mg creat Sourc es of hydro codon e inclu de sched uled presc ripti on medic ation s. [place] morph one, dihyd rocod eine and norhy droco done are expec donald metab olite s of hydro codon e. [place] morph one and dihyd rocod eine are also avail able as sched uled presc ripti on medic ation s. Gabap entin PRESE NT Aceta minop hen PRESE NT ===== ===== ===== ===== ===== ===== ===== ===== ===== ===== ===== ===== ===== === Test Resul t Flag Units Ref Range Creat inine 15 L mg/dL >=20 ===== ===== ===== ===== ===== ===== ===== ===== ===== ===== ===== ===== ===== === Decla red Medic ation s: Medic ation list was not provi ded. ===== ===== ===== ===== ===== ===== ===== ===== ===== ===== ===== ===== ===== === For clini jumana consu ltati on, pleas e call . ===== ===== ===== ===== ===== ===== ===== ===== ===== ===== ===== ===== ===== === Not Available [facility] ([facility]) [address] [facility], [place], [address], 01/17/2025 13:19:50 01/10/20 25 01/17/2025 COMPL IANCE DRUG NONA SIS, UR pdf . Not Available [facility] ([facility]) [address] [facility], [place], [address], 01/17/2025 13:19:50 Result Notes None recorded. Problems Name Problem SNOMED Code Status Onset Date Resolution Date Notes Provider Name and Address Organization Details Recorded Time Neuropathy 016735027 Active 2022 Melanie Sosa DO [address], [place], [address], [place] - [facility] 3 10:44:52 Chronic obstructive pulmonary disease 79036834 Active 2022 Melanie Sosa DO [address], [place], [address], [place] - [facility] 3 10:44:50 Tobacco dependence caused by cigarettes [id number] 9107 Active 2022 Melanie Sosa DO [address], [place], [address], [place] - [facility] 3 08:31:16 Acute exacerbatio n of chronic obstructive pulmonary disease 952897036 Active 2023 Melanie Sosa DO [address], [place], [address], [place] - [facility] 4 10:12:00 Problem Notes None recorded. Procedures Surgical History Date Name Laterality Status Provider Name and Address Organization Details Recorded Time hernia repair completed Julita ZAMBRANO - [facility] 06/25/2023 09:53:52 Imaging Results None recorded. Procedure Notes None recorded. Medical Equipment None Reported. Allergies Allergen ID Allergen Name Allergen Category Reaction Reaction Severity Criticality Documentation Date Start Date Code Code System Note Provider Name and Address Organization Details Recorded Time 861471 Product containin g penicilli n (product) medicatio n Not available Not available Not available 01/09/2025 01865 8001 SNOMED Julita monroy [place] - [facility] 5 09:16:22 Medications Name Sig Start Date Stop Date Status Note LastModified by Organization Details LastModified Time gabapentin 600 mg tablet Take 1 tablet 3 times a day by oral route. 2024 active Not Available Not Available Not Avai lable azithromyci n 250 mg tablet TAKE 2 TABLETS (500 MG) BY ORAL ROUTE ONCE DAILY FOR 1 DAY THEN 1 TABLET (250 MG) BY ORAL ROUTE ONCE DAILY FOR 4 DAYS 10/10 completed Not Available Not Available Not Available prednisone 20 mg tablet Take 2 tablets every day by oral route. 10/10 completed Not Available Not Available Not Available gabapentin 400 mg capsule TAKE 1 CAPSULE BY MOUTH 4 TIMES DAILY 06/25 completed Not Available Not Available Not Available carbamazepi ne 200 mg tablet 06/25 completed Not Available Not Available Not Available gabapentin 800 mg tablet Take 1 tablet 4 times a day by oral route. 2024 active Not Available Not Available Not Avai lable divalproex ER 500 mg tablet,exte nded release 24 hr Take 1 tablet every day by oral route. 09/28 completed Not Available Not Available Not Available gabapentin 300 mg capsule TAKE 1 CAPSULE BY MOUTH THREE TIMES DAILY 06/25 completed Not Available Not Available Not Available albuterol sulfate HFA 90 mcg/actuati on aerosol inhaler Inhale 2 puffs every 4 hours by inhalatio n route as needed. active Not Available Not Available No t Available topiramate 100 mg tablet TAKE 1 TABLET BY MOUTH ONCE DAILY IN THE EVENING 10/20 /2023 completed Not Available Not Available Not Available topiramate 50 mg tablet TAKE 1 TABLET BY MOUTH TWICE DAILY 06/25 completed Not Available Not Available Not Available pregabalin 50 mg capsule TAKE 1 CAPSULE BY MOUTH TWICE DAILY 06/25 completed Not Available Not Available Not Available Anoro Ellipta 62.5 mcg-25 mcg/actuati on powder for inhalation Inhale 1 puff every day by inhalatio n route. active Not Available Not Available No t Available Vitals Date Recorded Body height Body mass index (BMI) Body weight Respiratory rate Pain severity - 0-10 verbal numeric rating [Score] - Reported Body temperature Heart rate Oxygen saturation Systolic And Diastolic Provider Name and Address Organization Details Last Updated DateTime 5 167.64 cm 22.6 kg/m2 22555.9 3 g 18 /min 5 98.3 [degF] 76 /min 96 % 138/80 mm[Hg] Mahnaz Patel [facility] 5 09:54:49 Date Recorded Body height Body mass index (BMI) Body weight Respiratory rate Pain severity - 0-10 verbal numeric rating [Score] - Reported Body temperature Heart rate Oxygen saturation Systolic And Diastolic Provider Name and Address Organization Details Last Updated DateTime 5 167.64 cm 22 kg/m2 08714.3 6 g 18 /min 3 98.9 [degF] 87 /min 97 % 126/72 mm[Hg] Julita Hutchins [facility] 5 09:20:25 Date Recorded Body height Body mass index (BMI) Body weight Body temperature Heart rate Oxygen saturation Respiratory rate Pain severity - 0-10 verbal numeric rating [Score] - Reported Systolic And Diastolic Provider Name and Address Organization Details Last Updated DateTime 4 167.64 cm 22.3 kg/m2 91571.7 5 g 98 [degF] 76 /min 97 % 18 /min 4 120/68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
--- OUTSIDE RECORDS SUMMARY | 2025-08-04 11:34 | XMS_ITS | Clinical Summary ---
Author Organization [employer] ([place], [place], [place], [place], [place]) Address [address] [place] [address] Care Team Providers Care Plant Maintenance Manager Name Role Phone [facility], Find-A-Doc Primary Care Provider Allergies No known active allergies Medications naproxen (NAPROSYN) 500 MG tablet Take 1 tablet (500 mg total) by mouth 2 (two) times daily with breakfast and dinner for 10 days. 20 tablet 5 08/12/20 25 Active acetaminophen (Tylenol Extra Strength) 500 MG tablet Take 2 tablets (1,000 mg total) by mouth every 6 (six) hours as needed for pain for up to 10 days. 30 tablet 5 08/12/20 25 Active Encounters Date Type Department Care Team Description 08/02/2025 6:59 PM EST - 08/02/2025 10:40 PM EST Emergency [facility] Emergency Department [address] [place] [phone] Chronic SI joint pain (Primary Dx); Paresthesias Discharge Disposition: Home or Self Care from Last 3 Months Social History Tobacco Use Types Packs/Day Years [...] on file Sexual Orientation Not on file Last Filed Vital Signs Vital Sign Reading [...] Mass Index 24.28 08/02/2025 7:04 PM EST Plan of Treatment Health Maintenance Due Date Last Done Comments CT Colonography 1961 Colonoscopy 1961 Colorectal Cancer Screening 1961 FOBT/FIT 1961 Fit-DNA (Cologuard) 1961 Sigmoidoscopy 1961 Depression Screening (12+) 1973 Tobacco Cessation Counseling and Screening (12+) 01/04 HIV Screening 01/05/1976 Hepatitis C Screening 1979 DTAP/TDAP/TD VACCINES (1 - Tdap) 01/05/1980 Pneumococcal 50+ years (1 of 2 - PCV) 01/05/1980 Lipid Panel 01/05/1996 Shingles Vaccine (Zoster) (1 of 2) 2011 Medicare IPPE (Welcome to Medicare) G0402 09/06/2024 COVID-19 VACCINE (1 - season) 2025 Influenza Vaccine (#1) 2025 Respiratory Syncytial Virus (RSV) Adult or (1 - 1-dose 75+ series) 01/05/2036 Procedures Procedure Name Priority Date/Time Associated Diagnosis Comments CT ABDOMEN/PELVIS WITH IV CONTRAST STAT 08/02/2025 9:[address] CERVICAL SPINE WITHOUT IV CONTRAST STAT 08/02/2025 9:[address] THORACIC SPINE WITHOUT IV CONTRAST STAT 08/02/2025 9:[address] LUMBAR SPINE WITHOUT IV CONTRAST STAT 08/02/2025 9:26 PM EST URINALYSIS, REFLEX MICROSCOPIC AND CULTURE IF INDICATED STAT 08/02/2025 8:12 PM EST COMPREHENSIVE METABOLIC PANEL STAT 08/02/2025 8:12 PM EST CBC W/ AUTO DIFF STAT 08/02/2025 8:12 PM EST from Last 3 Months Results * CT ABDOMEN/PELVIS WITH IV CONTRAST [...] significant free fluid or adenopathy. Procedure Note Efrain Young MD - 08/02/2025 CT ABDOMEN AND [...] interpreted, and dictated by Efrain Young MD Rehana Arciniega MD [facility] [place] ORDERABLES Final R esult * CT [...] evaluation of disc disease and/or canal stenosis Rehana Arciniega MD [facility] [place] ORDERABLES Final R esult * CT [...] IMG CT ORDERABLES Final R esult * (ABNORMAL) CBC with Auto Diff (08/02/2025 8:12 PM EST) WBC 8.5 4.8 - 10.8 K/ L 08/02/2025 8:23 PM EST [facility] RBC 5.43(H) 3.80 - 5.20 M/ L 08/02/2025 8:23 PM EST [facility] Hemoglobin 15.6 12.8 - 17.4 GM/DL 08/02/2025 8:23 PM EST [facility] Hematocrit 46.1 39.0 - 51.0 % 08/02/2025 8:23 PM EST [facility] MCV 85 81 - 101 fL 08/02/2025 8:23 PM [facility] MCH 28.7 27.0 - 34.0 pg 08/02/2025 8:23 PM [facility] MCHC 33.8 32.0 - 36.0 GM/DL 08/02/2025 8:23 PM [facility] RDW 14.7(H) 11.5 - 14.5 % 08/02/2025 8:23 PM [facility] Platelets 390 150 - 400 K/CU MM 08/02/2025 8:23 PM [facility] MPV 10.1 9.4 - 12.4 fL 08/02/2025 8:23 PM [facility] Nucleated Red Blood Cell 0.0 0 - 0.2 % 08/02/2025 8:23 PM [facility] % Neutros 55 37 - 80 % 08/02/2025 8:23 PM [facility] % Lymphs 29 10 - 50 % 08/02/2025 8:23 PM [facility] % Monos 12 5 - 13 % 08/02/2025 8:23 PM [facility] % Eos 3.8 0.0 - 7.0 % 08/02/2025 8:23 PM [facility] % Baso 1 0 - 3 % 08/02/2025 8:23 PM [facility] NRBC Absolute <0.01 0 - 0.012 K/ul 08/02/2025 8:23 PM [facility] # Neutros 4.63 2.00 - 6.90 K/ L 08/02/2025 8:23 PM [facility] # Lymphs 2.42 0.60 - 3.40 K/ L 08/02/2025 8:23 PM [facility] # Monos 1.01(H) 0.00 - 0.90 K/ L 08/02/2025 8:23 PM [facility] # Eos 0.32 0.00 - 0.70 K/ L 08/02/2025 8:23 PM [facility] # Baso 0.09 0.00 - 0.20 K/ L 08/02/2025 8:23 PM EST [facility] % Imm Grans 0.20 % 08/02/2025 8:23 PM EST [facility] # IG 0.02(H) 0.00 - 0.00 K/uL 08/02/2025 8:23 PM EST [facility] Blood Venipuncture / Unknown 08/02/2025 8:12 PM EST 08/02/2025 8:16 PM EST Narrative [facility] - 08/02/2025 8:23 PM EST When [...] Blast? Flag noted Atypical Lymph flag noted Rehana Arciniega MD LAB BLOOD ORDERABLES Aria gamble Result [facility] [address] [place] [address] * Urinalysis, Reflex Microscopic and Culture If Indicated (08/02/2025 8:12 PM EST) Color, UA Straw 08/02/2025 8:23 PM EST [facility] Clarity, UA Clear 08/02/2025 8:23 PM EST [facility] Specific [place], UA <=1.005 1.002 - 1.030 08/02/2025 8:23 PM EST [facility] pH, UA 6.0 5.0 - 9.0 08/02/2025 8:23 PM EST [facility] Leukocytes, UA Negative Negative 08/02/2025 8:23 PM EST [facility] Nitrite, UA Negative Negative 08/02/2025 8:23 PM EST [facility] Protein, UA Negative Negative 08/02/2025 8:23 PM EST [facility] Glucose, UA Negative Negative 08/02/2025 8:23 PM EST [facility] Ketones, UA Negative Negative 08/02/2025 8:23 PM EST [facility] Bilirubin, UA Negative Negative 08/02/2025 8:23 PM EST [facility] Blood, UA Negative Negative 08/02/2025 8:23 PM EST [facility] Urobilinogen, UA 0.2 mg/dL Normal 08/02/2025 8:23 PM EST [facility] Specimen Source Urine, Clean Catch 08/02/2025 8:23 PM EST [facility] Urine URINE SPECIMEN COLLECTION, CLEAN CATCH / Unknown 08/02/2025 8:12 PM EST 08/02/2025 8:16 PM EST us Rehana Arciniega MD URINE ORDERABLES Final Re sult [facility] [address] [place] [address] * (ABNORMAL) Comprehensive metabolic panel (08/02/2025 8:12 PM EST) Sodium 138 136 - 145 meq/L 08/02/2025 8:40 PM [facility] Potassium 3.5 3.5 - 5.1 meq/L 08/02/2025 8:40 PM [facility] Chloride 99 98 - 107 meq/L 08/02/2025 8:40 PM [facility] CO2 29 21 - 32 meq/L 08/02/2025 8:40 PM EST [facility] Calcium 9.0 8.5 - 10.1 mg/dL 08/02/2025 8:40 PM [facility] Glucose 73(L) 74 - 100 mg/dL 08/02/2025 8:40 PM [facility] BUN 7 7 - 18 mg/dL 08/02/2025 8:40 PM [facility] Creatinine 0.72 0.70 - 1.20 mg/dL 08/02/2025 8:40 PM [facility] BUN/Creatinine 10 08/02/2025 8:40 PM [facility] Albumin 3.1(L) 3.4 - 5.0 g/dL 08/02/2025 8:40 PM [facility] Alkaline Phosphatase 131(H) 46 - 116 U/L 08/02/2025 8:40 PM EST [facility] ALT 17 12 - 78 U/L 08/02/2025 8:40 PM [facility] AST 13(L) 15 - 37 U/L 08/02/2025 8:40 PM [facility] Total Bilirubin 0.2 0.2 - 1.0 mg/dL 08/02/2025 8:40 PM [facility] Protein, Total 7.6 6.4 - 8.2 gm/dL 08/02/2025 8:40 PM [facility] Anion Gap 14 - 08/02/2025 8:40 PM [facility] A/G Ratio 0.7 08/02/2025 8:40 PM [facility] Globulin 4.5 g/dL 08/02/2025 8:40 PM [facility] Osmolality Calc 272.2 mOsm/kg 8:40 PM [facility] eGFR (mL/min/1.73m2) >60 >=60 mL/min/1.7 3m2 08/02/2025 8:40 PM [facility] Comment:ESTIMATED GFR IS NOT ACCURATE CREATININE CLEARANCE IN PREDICTING GLOMERULAR FILTRATION RATE. ESTIMATED GFR IS NOT APPLICABLE FOR DIALYSIS PATIENTS. Blood Venipuncture / Unknown 08/02/2025 8:12 PM EST 08/02/2025 8:16 PM EST us Rehana Arciniega MD LAB BLOOD ORDERABLES Aria l Result [facility] [address] [place] [id number], [facility] [phone] from Last 3 Months Insurance [facility] MCR ADV DUAL COMPLETE Care Teams Plant Maintenance Manager Relationship Specialty Start Date End Date [facility] Connection, [facility]Doc [facility] [place] [address] PCP - General 08/02/25
--- OUTSIDE RECORDS SUMMARY | 2025-08-04 11:34 | XMS_ITS | Referral Summary ---
Author Organization [employer] ([place], [place], [place], [place], [place]) Address [address] [place] [address] Care Team Providers Care Binding Bench Worker Name Role Phone [facility], Find-A-Doc Primary Care Provider Encounters Date Type Department Care Team Description 08/02/2025 6:59 PM EST - 08/02/2025 10:40 PM EST Emergency [facility] Emergency Department [address] [place] [address] Chronic SI joint pain (Primary Dx); Paresthesias Discharge Disposition: Home or Self Care from Last 3 Months Allergies No known active allergies Medications naproxen [...] days. 30 tablet 5 08/12/20 25 Active Social History Tobacco Use Types Packs/Day Years [...] 08/02/2025 7:04 PM EST Plan of Treatment Not on file Procedures Procedure Name Priority Date/Time Associated Diagnosis [...] by Efrain Young MD Rehana Arciniega MD IMG CT ORDERABLES Final [...] by Efrain Young MD Rehana Arciniega MD IMG CT ORDERABLES Final R esult * (ABNORMAL) CBC with Auto Diff (08/02/2025 8:12 PM EST) WBC 8.5 4.8 - 10.8 K/ L 08/02/2025 8:23 PM [facility] RBC 5.43(H) 3.80 - 5.20 M/ L 08/02/2025 8:23 PM [facility] Hemoglobin 15.6 12.8 - 17.4 GM/DL 08/02/2025 8:23 PM [facility] Hematocrit 46.1 39.0 - 51.0 % 08/02/2025 8:23 PM [facility] MCV 85 81 - 101 fL 08/02/2025 8:23 PM [facility] MCH 28.7 27.0 - 34.0 pg 08/02/2025 8:23 PM [facility] MCHC 33.8 32.0 - 36.0 GM/DL 08/02/2025 8:23 PM [facility] RDW 14.7(H) 11.5 - 14.5 % 08/02/2025 8:23 PM [facility] Platelets 390 150 - 400 K/CU MM 08/02/2025 8:23 PM [facility] MPV 10.1 9.4 - 12.4 fL 08/02/2025 8:23 PM [facility] Nucleated Red Blood Cell 0.0 0 - 0.2 % 08/02/2025 8:23 PM [facility] % Neutros 55 37 - 80 % 08/02/2025 8:23 PM [facility] % Lymphs 29 10 - 50 % 08/02/2025 8:23 PM EST [facility] % Monos 12 5 - 13 % 08/02/2025 8:23 PM EST [facility] % Eos 3.8 0.0 - 7.0 % 08/02/2025 8:23 PM EST [facility] % Baso 1 0 - 3 % 08/02/2025 8:23 PM EST [facility] NRBC Absolute <0.01 0 - 0.012 K/ul 08/02/2025 8:23 PM EST [facility] # Neutros 4.63 2.00 - 6.90 K/ L 08/02/2025 8:23 PM [facility] # Lymphs 2.42 0.60 - 3.40 K/ L 08/02/2025 8:23 PM [facility] # Monos 1.01(H) 0.00 - 0.90 K/ L 08/02/2025 8:23 PM EST [facility] # Eos 0.32 0.00 - 0.70 K/ L 08/02/2025 8:23 PM EST [facility] # Baso 0.09 0.00 - 0.20 K/ L 08/02/2025 8:23 PM [facility] % Imm Grans 0.20 % 08/02/2025 8:23 PM [facility] # IG 0.02(H) 0.00 - 0.00 K/uL 08/02/2025 8:23 PM [facility] Blood Venipuncture / Unknown 08/02/2025 8:12 PM EST 08/02/2025 8:16 PM EST Narrative [facility] - 08/02/2025 8:23 PM EST [...] noted Atypical Lymph flag noted us Rehana F Briskie MD LAB BLOOD ORDERABLES Aria l Result [facility] [address] [place] [address] * Urinalysis, Reflex Microscopic and Culture If Indicated (08/02/2025 8:12 PM EST) Color, UA Straw 08/02/2025 8:23 PM EST [facility] Clarity, UA Clear 08/02/2025 8:23 PM EST [facility] Specific [place], UA <=1.005 1.002 - 1.030 08/02/2025 8:23 PM EST [facility] pH, UA 6.0 5.0 - 9.0 08/02/2025 8:23 PM EST [facility] Leukocytes, UA Negative Negative 08/02/2025 8:23 PM EST [facility] Nitrite, UA Negative Negative 08/02/2025 8:23 PM EST [facility] Protein, UA Negative Negative 08/02/2025 8:23 PM EST [facility] Glucose, UA Negative Negative 08/02/2025 8:23 PM EST [facility] Ketones, UA Negative Negative 08/02/2025 8:23 PM EST [facility] Bilirubin, UA Negative Negative 08/02/2025 8:23 PM EST [facility] Blood, UA Negative Negative 08/02/2025 8:23 PM EST [facility] Urobilinogen, UA 0.2 mg/dL Normal 08/02/2025 8:23 PM EST [facility] Specimen Source Urine, Clean Catch 08/02/2025 8:23 PM EST [facility] Urine URINE SPECIMEN COLLECTION, CLEAN CATCH / Unknown 08/02/2025 8:12 PM EST 08/02/2025 8:16 PM EST us Rehana Arciniega MD URINE ORDERABLES Final Re sult [facility] [address] [place] [address], [facility] [phone] * (ABNORMAL) Comprehensive metabolic panel (08/02/2025 8:12 PM EST) Sodium 138 136 - 145 meq/L 08/02/2025 8:40 PM EST [facility] Potassium 3.5 3.5 - 5.1 meq/L 08/02/2025 8:40 PM EST [facility] Chloride 99 98 - 107 meq/L 08/02/2025 8:40 PM [facility] CO2 29 21 - 32 meq/L 08/02/2025 8:40 PM [facility] Calcium 9.0 8.5 - 10.1 mg/dL 08/02/2025 8:40 PM [facility] Glucose 73(L) 74 - 100 mg/dL 08/02/2025 8:40 PM [facility] BUN 7 7 - 18 mg/dL 08/02/2025 8:40 PM [facility] Creatinine 0.72 0.70 - 1.20 mg/dL 08/02/2025 8:40 PM [facility] BUN/Creatinine 10 08/02/2025 8:40 PM [facility] Albumin 3.1(L) 3.4 - 5.0 g/dL 08/02/2025 8:40 PM [facility] Alkaline Phosphatase 131(H) 46 - 116 U/L 08/02/2025 8:40 PM EST [facility] ALT 17 12 - 78 U/L 08/02/2025 8:40 PM [facility] AST 13(L) 15 - 37 U/L 08/02/2025 8:40 PM [facility] Total Bilirubin 0.2 0.2 - 1.0 mg/dL 08/02/2025 8:40 PM [facility] Protein, Total 7.6 6.4 - 8.2 gm/dL 08/02/2025 8:40 PM [facility] Anion Gap 14 11 - 22 08/02/2025 8:40 PM EST [facility] A/G Ratio 0.7 08/02/2025 8:40 PM EST [facility] Globulin 4.5 g/dL 08/02/2025 8:40 PM EST [facility] Osmolality Calc 272.2 mOsm/kg 8:40 PM EST [facility] eGFR (mL/min/1.73m2) >60 >=60 mL/min/1.7 3m2 08/02/2025 8:40 PM EST [facility] Comment:ESTIMATED GFR IS NOT ACCURATE CREATININE CLEARANCE IN PREDICTING GLOMERULAR FILTRATION RATE. ESTIMATED GFR IS NOT APPLICABLE FOR DIALYSIS PATIENTS. Blood Venipuncture / Unknown 08/02/2025 8:12 PM EST 08/02/2025 8:16 PM EST Rehana Arciniega MD LAB BLOOD ORDERABLES Aria gamble Result [facility] [address] [place] [address], [facility] [phone] from Last 3 Months Insurance Care Teams Binding Bench Worker Relationship Specialty Start Date End Date [facility] Connection, Find[facility]Doc [facility] Connection Find-a-Doc [place] [id number] PCP - General 08/02/25
[2025-08-04 11:36] VITALS: BP 122/84; PULSE 90; RESP 16; TEMP 36.8; O2SAT 95
== END 2025-08-04 11:40 | disposition home or self-care (01) ==
PROVIDERS: Emergency Provider Student in an Organized Health Care Education/Training Program; PCP Family Medicine
DX: M54.32 Sciatica, left side (principal); F17.210 Nicotine dependence, cigarettes, uncomplicated
CPT/HCPCS: 96372; 99283; 99285; J1885